=== PATIENT | female | born 1950 | race Caucasian/White ===

== ENCOUNTER 2019-04-09 23:17 | Emergency (ER) | payer MEDICARE ==
[~2019-04-09] VITALS: Ht 157.5 cm; Wt 57.6 kg
[2019-04-09] MEDS ORDERED: LEVSOD25 (23:27)
[2019-04-10 00:11] LABS: BASOPHILS ABSOLUTE AUTO 0.08 K/mm3 (0.00-0.23); BASOPHILS PERCENT AUTO 1 % (0-2); EOSINOPHILS ABSOLUTE AUTO 0.26 K/mm3 (0.00-0.68); EOSINOPHILS PERCENT AUTO 2 % (0-6); Hematocrit 44.6 % (33.0-51.0); Hemoglobin 14.2 g/dL (11.5-16.0); IMMATURE GRAN ABSOLUTE AUTO 0.04 K/mm3 (0.00-0.10); IMMATURE GRAN PERCENT AUTO 0 % (0-1); LYMPHOCYTES ABSOLUTE AUTO 3.64 K/mm3 (0.84-5.20); LYMPHOCYTES PERCENT AUTO 30 % (21-46); MONOCYTES ABSOLUTE AUTO 0.77 K/mm3 (0.16-1.47); MONOCYTES PERCENT AUTO 6 % (4-13); Mean Corpuscular HGB 30.8 pg (26.0-34.0); Mean Corpuscular HGB Conc 31.8 g/dL (31.5-36.5); Mean Corpuscular Volume 97 fL (80-100); NEUTROPHILS ABSOLUTE AUTO 7.54 K/mm3 (1.96-9.15); NEUTROPHILS PERCENT AUTO 61 % (41-73); Platelet Count 287 K/mm3 (150-400); RDW Coefficient Variation 12.3 % (11.7-14.2); RDW Standard Deviation 43.6 fL (35.1-46.3); Red Blood Cell Count 4.61 M/mm3 (3.80-5.20); White Blood Cell Count 12.33 K/mm3 (4.00-11.30)
[2019-04-10 00:36] LABS: Free Thyroxine 1.21 ng/dL (0.70-1.60)
[2019-04-10 00:37] LABS: Alanine Aminotransfer (ALT/SGP 17 U/L (12-78); Albumin, Blood 3.7 g/dL (3.4-5.0); Alk Phos 86 U/L (50-136); Anion Gap 6 mmol/L (6-16); Aspartate Aminotrans (AST/SGOT 11 U/L (12-37); Bilirubin, Total 0.2 mg/dL (0.1-1.0); Blood Urea Nitrogen 20 mg/dL (8-24); Bun/Creatinine Ratio 23.1 (12.0-20.0); CO2, Blood 29 mmol/L (21-32); Calcium, Blood 9.6 mg/dL (8.5-10.1); Chloride, Blood 107 mmol/L (98-108); Creatinine, Blood 0.87 mg/dL (0.40-1.00); Globulin, Blood 3.6 g/dL (2.2-4.0); Glomerular Filtration Rate >60 (60-); Glucose, Blood 111 mg/dL (70-99); Sodium, Blood 142 mmol/L (136-145); Total Protein, Blood 7.3 g/dL (6.4-8.2)
[2019-04-10 00:41] LABS: Thyroid Stimulating Hormone 0.063 uIU/mL (0.360-4.800); Triiodothyronine, Free 2.93 pg/mL (2.18-3.98)
[2019-04-10] MEDS ORDERED: Ativan1 MG PO (02:38)
== END 2019-04-10 02:42 | disposition home or self-care (01) ==
LOC: ER 23:17
PROVIDERS: Emergency Medicine
DX: R47.01 Aphasia (principal); Z79.899 Other long term (current) drug therapy; E03.9 Hypothyroidism, unspecified; G47.30 Sleep apnea, unspecified
CPT/HCPCS: 36415; 70450; 71046; 80053; 84439; 84443; 84481; 85025; 93005; 93010; 99285-25

== ENCOUNTER 2019-07-26 09:33 | Day surgery (SDC) | payer MEDICARE ==
[~2019-07-26] VITALS: Ht 162.6 cm; Wt 69.5 kg
[~2019-07-26 09:33] MED LIST: Ativan1 MG PO; LEVSOD25
--- NOTE | 2019-07-26 10:32 | NUR ---
Ambulatory in Day Surgery. History, Chart, Medications and Allergies reviewed before start of procedure.Patient confirms NPO status and agrees with scheduled surgery. Patient states colon prep results clear.Lungs clear T/O to Auscultation. Patient States Post-Procedure ride home has been arranged WITH
--- NOTE | 2019-07-26 11:09 | NUR ---
07/26/19 1109 Lei Mancini History, Chart, Medications and Allergies reviewed before start of procedure.MONITOR INTACT WITH CONTINUOUS PULSE OXIMETRY AND INTERMITTENT BP.3-LEAD EKG REVIEWED WITH PHYSICIAN PRIOR TO START OF PROCEDURE.O2 VIA N/C INTACT THROUGHOUT SEDATION/PROCEDURE. PATIENT DETERMINED TO BE ASA APPROPRIATE FOR PROPOFOL SEDATION PRIOR TO START OF PROCEDURE BY DR. EM.
--- NOTE | 2019-07-26 12:07 | NUR ---
Patient up to Ambulate independently. Gait steady. Discharge instructions reviewed with patient. Patient verbalizes understanding. Copy given to patient to take home. Patient States Post-Procedure ride home has been arranged. Discharged via wheelchair to private car for ride home. ALL BELONINGS SENT HOME WITH PATIENT. PT ANGRY THAT DR EM DID NOT SPEAK TO THEM ABOUT WHAT TO EXPECT NEXT FROM COLONOSCOPY. PT VERBALLY ABUSIVE TOWARDS STAFF. SPOKE TO DR EM. PT PHONE NUMBER PROVIDED.
== END 2019-07-26 23:18 | disposition home or self-care (01) ==
LOC: ORSCMMR 09:33 → ORD 10:30 → ORSCMMR 23:18
PROVIDERS: Internal Medicine Gastroenterology
PROC: 0DJD8ZZ Inspection of Lower Intestinal Tract, Via Natural or Artificial Opening Endoscopic (ICD-10-PCS; principal; 2019-07-26 10:30)
DX: R10.32 Left lower quadrant pain (principal); Z80.0 Family history of malignant neoplasm of digestive organs; K57.30 Diverticulosis of large intestine without perforation or abscess without bleeding; E03.9 Hypothyroidism, unspecified; Z79.899 Other long term (current) drug therapy
CPT/HCPCS: J2704; J7120

== ENCOUNTER → 2022-01-05 | Outpatient (CLI) | payer MEDICARE | END | disposition home or self-care (01) | LOC: LAB 12:14 → LAB SHORT 12:14 | DX: E03.9 Hypothyroidism, unspecified (principal) | CPT/HCPCS: 84443 ==

== ENCOUNTER 2023-09-29 13:24 | Day surgery (SDC) | payer MEDICARE ==
[~2023-09-29] VITALS: Ht 162.6 cm; Wt 71.3 kg
[2023-09-29] MEDS ORDERED: ATOR20 PO (13:45)
[2023-09-29] MEDS ORDERED: ZOLP10 PO (13:46)
--- NOTE | 2023-09-29 13:51 | NUR ---
09/29/23 1351 Bhakti Chowdhury: 1342 KAYE: 1349
[2023-09-29 14:49] VITALS: BP 158/70
== END 2023-09-29 15:00 | disposition home or self-care (01) ==
LOC: ORSCSDS 13:24
PROVIDERS: Ophthalmology
PROC: 08RJ3JZ Replacement of Right Lens with Synthetic Substitute, Percutaneous Approach (ICD-10-PCS; principal; 2023-09-29 14:30)
DX: H25.11 Age-related nuclear cataract, right eye (principal); Z96.1 Presence of intraocular lens; H35.30 Unspecified macular degeneration; E03.9 Hypothyroidism, unspecified; Z79.899 Other long term (current) drug therapy
CPT/HCPCS: J2250; J3010; J3301; J7040; V2632